=== PATIENT | male | born 1960 | race African-American/Black ===

== ENCOUNTER 2018-03-11 19:09 | Emergency (ER) | payer OTHER ==
--- NOTE | 2018-03-11 19:19 | PDOC ---
Rapid Medical Evaluation Time Seen by Provider: 03/11/18 19:18 Medical Evaluation: Allergies Allergy/AdvReac Type Severity Reaction Status Date / Time No Known Allergies Allergy Verified 09/25/17 23:19 03/11/18 19:18 I have performed a brief in-person evaluation of this patient. The patient presents with a chief complaint of: b/l foot pain x 2 weeks. No trauma. H/o hepatitis, etoh abuse, pancreatitis Pertinent physical exam findings: hard, thickened, toenails s w/ calluses, no e/ o infxn I have ordered the following:nothing The patient will proceed to the ED for further evaluation. Discharge Disposition - Diagnosis Foot pain, bilateral - Referrals - Patient Instructions - Post Discharge Activity
[2018-03-11 19:20] VITALS: BP 126/86; PULSE 116; TEMP 97.8; BMI 24.3
[2018-03-11] MEDS ORDERED: IBUPROFEN 400 MG TABLET (FP) PO ONE ×2 (19:34→19:35)
--- NOTE | 2018-03-11 19:38 | PDOC ---
History of Present Illness - General Chief Complaint: Pain Stated Complaint: BOTH FOOT PAIN Time Seen by Provider: 03/11/18 19:18 History Source: Patient Exam Limitations: No Limitations - History of Present Illness Initial Comments: 03/11/18 19:33 Patient is here with complaints of bilateral foot pain. Has multiple month history of pain and swelling to feet and has seen yarding engineer on multiple occasions and was told needed "a boot" for his right foot. Patient states did not want a boot and has not seemed dye test in approximately 3 months. States feet have become progressively more painful and has taken no medication, perform no treatments Occurred: reports: just prior to arrival Severity: reports: mild, moderate Pain Location: reports: lower extremity (bilateral feet) Past History - Travel Traveled outside of the country in the last 30 days: No Close contact w/someone who was outside of country & ill: No - Past Medical History Allergies/Adverse Reactions: Allergies Allergy/AdvReac Type Severity Reaction Status Date / Time No Known Allergies Allergy Verified 09/25/17 23:19 Home Medications: Ambulatory Orders Acetaminophen 1,000 mg PO Q6H PRN #30 tablet 03/11/18 COPD: No Diabetes: Yes HTN: Yes Hypercholesterolemia: Yes Liver Disease: Yes (Hep A) - Suicide/Smoking/Psychosocial Hx Smoking History: Never smoked Have you smoked in the past 12 months: No Hx Alcohol Use: Yes Drug/Substance Use Hx: No Substance Use Type: Alcohol Hx Substance Use Treatment: No Review of Systems - Review of Systems Able to Perform ROS?: Yes Is the patient limited Citizen Of [place] proficient: Yes Constitutional: Yes: Symptoms Reported, See HPI, Malaise HEENTM: No: Symptoms Reported Respiratory: No: Symptoms reported Musculoskeletal: Yes: Symptoms Reported, Other (bilateral feet) Integumentary: Yes: Symptoms Reported, See HPI, Dryness All Other Systems: Reviewed and Negative *Physical Exam - Vital Signs Last Vital Signs Temp Pulse Resp BP Pulse Ox 97.8 F 116 H 18 126/86 97 03/11/18 19:19 03/11/18 19:19 03/11/18 19:19 03/11/18 19:19 03/11/18 19:19 - Physical Exam General Appearance: Yes: Nourished, Appropriately Dressed HEENT: positive: MADAI, Normal ENT Inspection, TMs Normal, Pharynx Normal Musculoskeletal: negative: Normal Inspection Extremity: positive: Normal Range of Motion, Other (discoloration to bilateral feet with cracking peeling and evidence of candidal infection between toes. No fluctuance, however Joshua shows signs of significant peripheral vascular changes. Has range of motion of toes and sensation is intact. Palpable dorsalis pedis pulses but not strong. Shiny red skin changes appear to track up to proximally mid tibial). negative: Normal Capillary Refill, Normal Inspection Integumentary: positive: Dry, Pale Neurologic: positive: business development analyst II-XII NML intact, Fully Oriented, Alert, Normal Mood/ Affect, Normal Response, Motor Strength 5/5 Moderate Sedation - Procedure Monitoring Vital Signs: Procedure Monitoring Vital Signs Temperature 97.8 F 03/11/18 19:19 Pulse Rate 116 H 03/11/18 19:19 Respiratory Rate 18 03/11/18 19:19 Blood Pressure 126/86 03/11/18 19:19 O2 Sat by Pulse Oximetry (%) 97 03/11/18 19:19 Progress Note - Progress Note Progress Note: Tinea pedis, will recommend bleach baths and given 1 dose of Diflucan 150 mg tablet here. Ibuprofen for pain relief and follow-up with the yarding engineer early next week *DC/Admit/Observation/Transfer Diagnosis at time of Disposition: Foot pain, bilateral - Discharge Dispostion Disposition: HOME Condition at time of disposition: Stable Decision to Admit order: No - Prescriptions Prescriptions: Acetaminophen 1,000 mg PO Q6H PRN #30 tablet PRN Reason: Pain - Referrals Referrals: Oz Quiroz MD [Staff Physician] - - Patient Instructions Printed Discharge Instructions: DI for Peripheral Vascular (Arterial) Disease, DI for Athlete's Foot Additional Instructions: Rest, hot soaks with to Bleach in Entire Been of Water to Help Assist with YEast Infection of Feet, to area on and off for 15 minutes 4-6 times a day Avoid heavy lifting or exercise until pain and swelling is resolved or until further directed Keep area highly elevated to reduce swelling Followup with yarding engineer in one to 2 days if not improving, if significantly improved may wait one week for followup with private physician or yarding engineer May use ibuprofen 2-200 mg tablets every 6 hours as needed for pain You have been given 1 dfose of Diflucan 150 tab for yeast infection of feet. - Post Discharge Activity
[2018-03-11] MEDS ORDERED: FLUCONAZOLE 100 MG TABLET (UD) ONE (19:41)
== END 2018-03-11 19:50 | disposition home or self-care (01) ==
LOC: JERFT 19:09
DX: B35.3 Tinea pedis (principal); L84 Corns and callosities; I10 Essential (primary) hypertension; E11.9 Type 2 diabetes mellitus without complications; E78.00 Pure hypercholesterolemia, unspecified; Z86.19 Personal history of other infectious and parasitic diseases
CPT/HCPCS: 99281-25